=== PATIENT | female | born 1940 | race Caucasian/White ===

== ENCOUNTER 2021-01-09 09:13 | Outpatient (REF) | payer MEDICARE, OTHER, SELFPAY ==
[2021-01-09 11:10] LABS: MANUAL DIFF FLAG NO
[2021-01-09 11:18] LABS: Basophils Percent Auto 0.6 % (0-2); Eosinophils Absolute Auto 0.3 X10*3/uL (0.0-0.4); Eosinophils Percent Auto 4.2 % (0-4); Hematocrit 40.7 % (37-47); Hemoglobin 13.5 g/dl (12.0-16.0); Imm Gran Abs Auto 0.04 X10*3/uL (0.00-0.03); Imm Gran Pct Auto 0.6 % (0.0-0.4); Lymphocytes Percent Auto 45.8 % (20-40); Mean Corpuscular HGB Conc 33.2 g/dl (31.0-35.0); Mean Corpuscular Hemoglobin 30.6 pg (27.0-33.0); Mean Corpuscular Volume 92.3 fL (80-98); Mean Platelet Volume 12.2 fL (9.4-12.3); Monocytes Absolute Auto 0.4 X10*3/uL (0.1-1.2); Monocytes Percent Auto 6.3 % (2-11); Neutrophils Absolute Auto 2.8 X10*3/uL (2.0-8.3); Neutrophils Percent Auto 42.5 % (45-73); Platelet Count 273 X10*3/uL (160-400); Red Blood Count 4.41 X10*6/uL (4.20-5.50); Red Cell Distribution Width 16.3 % (11.0-16.0); White Blood Count 6.5 X10*3/uL (4.8-10.8)
[2021-01-09 11:55] LABS: Alanine Aminotransferase 16 U/L (0-31); Albumin Level 4.1 g/dL (3.5-5.0); Alkaline Phosphatase 39 U/L (39-117); Anion Gap 13 (12-20); Aspartate Amino Transferase 17 U/L (5-31); Bilirubin Total 0.6 mg/dL (0.0-1.0); Blood Urea Nitrogen 25 mg/dL (9-16); Calcium 9.2 mg/dL (8.4-10.2); Carbon Dioxide 27 mmol/L (22-29); Chloride 108 mmol/L (96-108); Cholesterol 172 mg/dL; Estimated Glomerular Filt Rate > 60; Glucose Fasting 97 mg/dL (60-99); HDL Cholesterol 51 mg/dL; LDL Cholesterol Calculated 107 mg/dl; Potassium 4.5 mmol/L (3.3-5.1); Sodium 143 mmol/L (135-145); Total Protein 6.9 g/dL (6.5-8.0); Triglycerides 73 mg/dL
[2021-01-09 12:18] LABS: Vitamin D 25-OH Total 41.3 ng/mL (>30)
== END 2021-01-09 09:14 | disposition home or self-care (01) ==
LOC: HO.HMGCLDS 09:13
PROVIDERS: PCP Internal Medicine; Visit Provider Internal Medicine
DX: E78.5 Hyperlipidemia, unspecified (principal); E55.9 Vitamin D deficiency, unspecified; I10 Essential (primary) hypertension
CPT/HCPCS: 36415; 80053; 80061; 82306; 85025

== ENCOUNTER 2023-01-01 08:41 | Outpatient (REF) | payer MEDICARE, OTHER, SELFPAY ==
[2023-01-01 11:26] LABS: MANUAL DIFF FLAG NO
[2023-01-01 11:51] LABS: Basophils Absolute Auto 0.1 X10*3/uL (0.0-0.2); Eosinophils Absolute Auto 0.3 X10*3/uL (0.0-0.4); Eosinophils Percent Auto 5.2 % (0-4); Hematocrit 38.3 % (37.0-47.0); Imm Gran Abs Auto 0.01 X10*3/uL (0.00-0.03); Imm Gran Pct Auto 0.2 % (0.0-0.4); Lymphocytes Absolute Auto 3.2 X10*3/uL (1.2-4.9); Lymphocytes Percent Auto 53.1 % (20-40); Mean Corpuscular HGB Conc 33.9 g/dl (31.0-35.0); Mean Corpuscular Hemoglobin 30.5 pg (27.0-33.0); Mean Corpuscular Volume 89.9 fL (80.0-98.0); Mean Platelet Volume 11.2 fL (9.4-12.3); Monocytes Absolute Auto 0.4 X10*3/uL (0.1-1.2); Monocytes Percent Auto 7.4 % (2-11); Neutrophils Percent Auto 33.1 % (45-73); Platelet Count 277 X10*3/uL (160-400); Red Blood Count 4.26 X10*6/uL (4.20-5.50); Red Cell Distribution Width 18.2 % (11.0-16.0); White Blood Count 5.9 X10*3/uL (4.8-10.8)
[2023-01-01 12:29] LABS: Alanine Aminotransferase 12 U/L (0-31); Albumin Level 4.1 g/dL (3.5-5.0); Alkaline Phosphatase 48 U/L (39-117); Anion Gap 10 (12-20); Aspartate Amino Transferase 15 U/L (5-31); Bilirubin Total 0.9 mg/dL (0.0-1.0); Blood Urea Nitrogen 29 mg/dL (9-16); Calcium 9.2 mg/dL (8.4-10.2); Carbon Dioxide 27 mmol/L (22-29); Chloride 109 mmol/L (96-108); Cholesterol 177 mg/dL; Estimated Glomerular Filt Rate > 60; Glucose Fasting 92 mg/dL (60-99); HDL Cholesterol 53 mg/dL; LDL Cholesterol Calculated 110 mg/dl; Potassium 3.8 mmol/L (3.3-5.1); Sodium 142 mmol/L (135-145); Total Protein 6.8 g/dL (6.5-8.0); Triglycerides 74 mg/dL; Vitamin D 25-OH Total 25.9 ng/mL (>30)
== END 2023-01-01 08:42 | disposition home or self-care (01) ==
LOC: HO.HMGCLDS 08:41
PROVIDERS: PCP Internal Medicine; Visit Provider Internal Medicine
DX: E55.9 Vitamin D deficiency, unspecified (principal); E78.5 Hyperlipidemia, unspecified; I10 Essential (primary) hypertension
CPT/HCPCS: 36415; 80053; 80061; 82306; 85025

== ENCOUNTER 2023-03-01 11:00 | Outpatient (RCR) | payer MEDICARE, OTHER, SELFPAY ==
--- NOTE | 2023-02-01 13:55 | MHC.PT.EP ---
[facility] [place] Office [place] [facility] [place] Office [address] Wyatt Mckeon [address] [phone] F: [phone] F: [phone] F: [phone] F: [phone] Physical Therapy Plan of Care Date of Evaluation: Date of Surgery: N/A Diagnosis: Low back pain, unspecified Assessment: Pt is a pleasant and motivated 82yo F who presents to PT with low back pain after carrying a 50# suit case and twisting to place it on a scale in August. Pt presents to PT with current impairments in pain, decreased lumbar ROM, soft tissue restrictions, decreased core stabilization, decreased hip/glute strength, decreased balance, and impaired gait. She is TTP throughout B thoracic and lumbar PS. She is limited functionally by prolonged sitting, prolonged standing, bending, and walking. She is an excellent candidate for skilled PT in order to address current impairments to facilitate return to PLOF. She is recommended to be seen 2x/week for 4 weeks and will be reassessed at that time. 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 Manual therapy to restore motion and function. Therapeutic exercise to improve strength and flexibility. Neuromuscular re-education for posture and balance. Therapeutic activities to return to functional activities of daily living. Electronically signed by: Ashly Flores, PT, DPT Please sign and return to therapist. Thank you for your referral.
--- NOTE | 2023-04-13 14:28 | MHC.PT.DC ---
[facility] [place] Office [place] Office [place] Office [address] Wyatt Mckeon [address] [phone] F: [phone] F: [phone] F: [phone] F: [phone] Physical Therapy Discharge Report Diagnosis: Low back pain, unspecified Date of Surgery: N/A Date of Evaluation: 02/01/23 Date of Discharge: 04/13/23 Treatments to Date: 7 Cancellations to Date: No Shows to Date: Discharge Status: Patient Elected to Stop Discharge Summary: Pt was seen for PT from 02/01/23-03/01/23. Her last attended session was 03/01/23. Pt is being D/C from skilled PT as she has not attended or called to schedule in > 30 days. Pt current level of function unknown at this time. Electronically signed by: Ashly Flores, PT, DPT Please sign and return to therapist. Thank you for your referral.
== END 2023-04-13 14:28 | disposition home or self-care (01) ==
LOC: HO.PT 11:00
PROVIDERS: PCP Internal Medicine; Visit Provider Internal Medicine
DX: M54.50 Low back pain, unspecified (principal)
CPT/HCPCS: 97110; 97140; 97161; 97530

== ENCOUNTER 2023-06-10 12:11 | Outpatient (AMB) | payer MEDICARE, OTHER, SELFPAY ==
--- NOTE | 2023-06-10 12:21 | A.OFFPC_ITS ---
Vital Signs 06/10/23 12:22 Height 5 ft Weight 128 lb 2 oz BMI 25.0 BP 140/82 H Blood Pressure Location Lt brachial Position Sitting Pulse 61 Pulse Source Pulse Oximeter Pulse Oximetry (%) 95 Oxygen Delivery Method Room Air Intake Visit Reasons: 1 Month follow up HTN Allergies Aciphex Allergy (Intermediate, Uncoded 06/10/23 12:23) Swelling Medication List - Last Reconciled 06/10/23 by Katey Oliva MD aspirin 81 mg PO DAILY atenolol 25 mg PO BID cholecalciferol (vitamin D3) 50 mcg PO DAILY lisinopril 15 mg (1.5 x 10 mg) PO DAILY Tobacco use date assessed: 06/10/23 Fall risk assessment: No Falls in past year Last assessed Fall Risk: 06/10/23 Dental Screening Dental Screen Date: 06/10/23 Did you have a dental visit in the last 12 months?: No Did you have a dental problem in the last 6 months where you did not have access to dental care?: No Was dental information given to patient?: Patient has dentist HPI 1 Month follow up HTN HPI Details Pt pesents for f/u HTN. Patient is feeling better denies headaches or chest pain. PFSH Medical History Hyperlipidemia Hypertension Vitamin D deficiency Surgical History H/O breast surgery H/O colonoscopy H/O: knee surgery Family History Father Liver disease Mother No problems noted. Brother Brain cancer Social History Household Members Other:: lives alone, , [place]ian, 1 daughter in [place], 1 granddaughter 16 yo Housing: House Alcohol intake: never Patient Tobacco Use Status: Never used Tobacco e-Cigarette/Vaping Use: Never Used Current occupational status: retired Cognitive needs: No Hearing needs: No Vision needs: Yes Review of Systems Const All systems reviewed & are unremarkable except as noted in HPI and below Reports no additional complaints Eyes Reports no additional complaints ENT Reports no additional complaints Card Reports no additional complaints Resp Reports no additional complaints GI Reports no additional complaints Physical exam (Primary Care) Vital Signs: Last Vital Signs Pulse 61 06/10/23 12:22 BP 150/82 H 06/10/23 12:22 Pulse Ox 95 06/10/23 12:22 Oxygen Delivery Method Room Air 06/10/23 12:22 BMI result Body Mass Index 25.0 Tobacco/Smoking Status: Tobacco use Status Tobacco use date assessed 06/10/23 06/10/23 12:26 Patient Tobacco Use Status Never used Tobacco 06/10/23 12:26 e-Cigarette/Vaping Use Never Used 06/10/23 12:26 Const General: no acute distress HENMT Head: Yes normal to inspection Ears: hearing grossly normal bilaterally Face and sinus: Yes normal facial exam Mouth: Normal oral and palatal mucosa present Eyes General: appearance normal, both eyes and all related structures Neck Neck: Yes no lymphadenopathy and Yes supple Resp Effort & Inspection: normal respiratory effort Auscultation: clear to auscultation bilaterally Cardio Rhythm: regular rhythm Heart sounds: S1 normal heart sound present and S2 normal heart sound present Assessment and Plan Assessment & Plan (1) Hyperlipidemia: Code(s): E78.5 - Hyperlipidemia, unspecified Plan: CONTINUE LOW-CHOLESTEROL DIET (2) Hypertension: Code(s): I10 - Essential (primary) hypertension Plan: Continue atenolol 50 mg once a day and increase lisinopril to 10 mg twice a day. Follow-up in 2 months with a fasting labs before Orders: Orders Comprehensive [place]. Panel Fast 2 Months E78.5 - Hyperlipidemia, unspecified, I10 - Essential (primary) hypertension TSH reflex Free T4 2 Months E78.5 - Hyperlipidemia, unspecified, I10 - Essential (primary) hypertension Complete Blood Count Auto Diff 2 Months E78.5 - Hyperlipidemia, unspecified, I10 - Essential (primary) hypertension Referrals Dermatology Referral B07.9 - Viral wart, unspecified Medications: New atenolol 50 mg PO DAILY 90 tabs 3RF Changed From lisinopril 15 mg (1.5 x 10 mg) PO DAILY 135 tabs 0RF To lisinopril 10 mg PO BID 190 tabs 2RF Coding Level of Care Code Est Pt Level 3 (33639) Diagnoses Hyperlipidemia E78.5 Hypertension I10
[2023-06-10 12:22] VITALS: BP 140/82; PULSE 61; O2SAT 95; BMI 25.0
== END 2023-06-10 13:16 | disposition home or self-care (01) ==
PROVIDERS: PCP Internal Medicine; Visit Provider Internal Medicine
DX: E78.5 Hyperlipidemia, unspecified (principal); I10 Essential (primary) hypertension
CPT/HCPCS: 99213

== ENCOUNTER 2023-08-04 10:47 | Outpatient (AMB) | payer MEDICARE, OTHER, SELFPAY ==
--- NOTE | 2023-08-04 11:03 | MHC.PC.OV ---
Vital Signs 08/04/23 11:04 Height 5 ft Weight 127 lb BMI 24.8 BP 130/82 Blood Pressure Location Lt brachial Position Sitting Pulse 64 Pulse Source Pulse Oximeter Pulse Oximetry (%) 96 Oxygen Delivery Method Room Air Intake Visit Reasons: 2 month fu Intake Note: Pt is here today for 2 months follow up visit on BP. Pt states that she feels like half of her face is numb. Allergies Aciphex Allergy (Intermediate, Uncoded 08/04/23 11:07) Swelling Medication List - Last Reconciled 08/04/23 by Katey Oliva MD aspirin 81 mg PO DAILY atenolol 50 mg PO DAILY cholecalciferol (vitamin D3) 50 mcg PO DAILY lisinopril 10 mg PO BID Tobacco use date assessed: 06/10/23 HPI 2 month fu HPI Details Patient presents for the follow-up on hypertension. She reports intermittent left-sided facial numbness on and off for few weeks worse when anxious. Patient denies any change in the balance, weakness or numbness in extremities, face droop, chest pain or shortness of breath. [facility] Medical History Hyperlipidemia Hypertension Vitamin D deficiency Surgical History H/O breast surgery H/O colonoscopy H/O: knee surgery Family History Father Liver disease Mother No problems noted. Brother Brain cancer Social History Household Members Other:: lives alone, , [place], 1 daughter in [place], 1 granddaughter 16 yo Housing: House Alcohol intake: never Patient Tobacco Use Status: Never used Tobacco e-Cigarette/Vaping Use: Never Used Current occupational status: retired Cognitive needs: No Hearing needs: No Vision needs: Yes Review of Systems Const All systems reviewed & are unremarkable except as noted in HPI and below Reports no additional complaints Eyes Reports no additional complaints ENT Reports no additional complaints Card Reports no additional complaints Resp Reports no additional complaints GI Reports no additional complaints Reports no additional complaints Physical exam (Primary Care) Vital Signs: Last Vital Signs Pulse 64 08/04/23 11:04 BP 156/82 H 08/04/23 11:04 Pulse Ox 96 08/04/23 11:04 Oxygen Delivery Method Room Air 08/04/23 11:04 BMI result Body Mass Index 24.8 Tobacco/Smoking Status: Tobacco use Status Tobacco use date assessed 06/10/23 08/04/23 11:05 Patient Tobacco Use Status Never used Tobacco 08/04/23 11:05 e-Cigarette/Vaping Use Never Used 08/04/23 11:05 Const General: no acute distress HENMT Head: Yes normal to inspection Ears: hearing grossly normal bilaterally Face and sinus: Yes normal facial exam, Yes face symmetric and No sinus tenderness Eyes General: appearance normal, both eyes and all related structures Neck Neck: Yes no lymphadenopathy and Yes supple Carotids: bruit bilateral Resp Effort & Inspection: normal respiratory effort Auscultation: clear to auscultation bilaterally Cardio Rhythm: regular rhythm Heart sounds: S1 normal heart sound present and S2 normal heart sound present GI Inspection: Yes normal to inspection Palpation (GI): Soft to palpation Percussion: Yes normal to percussion Auscultation: normal bowel sounds Neuro General: no focal motor deficits, CN's II-XI intact bilaterally, normal sensation to monofilament and deep tendon reflexes 2+ bilaterally Gait exam (Neuro): Normal gait present Motor exam (neuro): 5/5 motor strength present throughout Romberg Test: Negative Assessment and Plan Assessment & Plan (1) Hypertension: Code(s): I10 - Essential (primary) hypertension Plan: Continue current medication low-sodium diet regular physical activity discussed with the patient. Follow-up in 2 months (2) Vitamin D deficiency: Code(s): E55.9 - Vitamin D deficiency, unspecified (3) Carotid bruit: Code(s): R09.89 - Other specified symptoms and signs involving the circulatory and respiratory systems Plan: Obtain carotid ultrasound (4) Heart murmur: Code(s): R01.1 - Cardiac murmur, unspecified Plan: Obtain echocardiogram to evaluate Orders: Orders TSH reflex Free T4 Today E55.9 - Vitamin D deficiency, unspecified, I10 - Essential (primary) hypertension Vitamin D 25-OH Total Today E55.9 - Vitamin D deficiency, unspecified, I10 - Essential (primary) hypertension Complete Blood Count Auto Diff Today E55.9 - Vitamin D deficiency, unspecified, I10 - Essential (primary) hypertension Comprehensive Met. Panel Today E55.9 - Vitamin D deficiency, unspecified, I10 - Essential (primary) hypertension US carotid duplex BI Today R01.1 - Cardiac murmur, unspecified, R09.89 - Other specified symptoms and signs involving the circulatory and respiratory systems [place] echo transthoracic complete Today R01.1 - Cardiac murmur, unspecified, R09.89 - Other specified symptoms and signs involving the circulatory and respiratory systems Coding Level of Care Code Est Pt Level 4 (23825) Diagnoses Hypertension I10 Vitamin D deficiency E55.9 Carotid bruit R09.89 Heart murmur R01.1
[2023-08-04 11:04] VITALS: BP 130/82; PULSE 64; O2SAT 96; BMI 24.8
== END 2023-08-04 11:58 | disposition home or self-care (01) ==
PROVIDERS: PCP Internal Medicine; Visit Provider Internal Medicine
DX: I10 Essential (primary) hypertension (principal); E55.9 Vitamin D deficiency, unspecified; R09.89 Other specified symptoms and signs involving the circulatory and respiratory systems; R01.1 Cardiac murmur, unspecified
CPT/HCPCS: 99214

== ENCOUNTER 2023-08-04 11:57 | Outpatient (REF) | payer MEDICARE, OTHER, SELFPAY ==
[2023-08-04 13:05] LABS: MANUAL DIFF FLAG NO
[2023-08-04 13:16] LABS: Basophils Absolute Auto 0.1 X10*3/uL (0.0-0.2); Basophils Percent Auto 0.9 % (0-2); Eosinophils Absolute Auto 0.3 X10*3/uL (0.0-0.4); Hematocrit 39.4 % (37.0-47.0); Hemoglobin 13.3 g/dl (12.0-16.0); Imm Gran Abs Auto 0.01 X10*3/uL (0.00-0.03); Imm Gran Pct Auto 0.2 % (0.0-0.4); Lymphocytes Absolute Auto 2.5 X10*3/uL (1.2-4.9); Lymphocytes Percent Auto 37.9 % (20-40); Mean Corpuscular HGB Conc 33.8 g/dl (31.0-35.0); Mean Corpuscular Hemoglobin 31.2 pg (27.0-33.0); Mean Corpuscular Volume 92.5 fL (80.0-98.0); Mean Platelet Volume 11.3 fL (9.4-12.3); Monocytes Absolute Auto 0.5 X10*3/uL (0.1-1.2); Monocytes Percent Auto 7.7 % (2-11); Neutrophils Absolute Auto 3.2 x10*3/uL (2.0-8.3); Neutrophils Percent Auto 49.3 % (45-73); Platelet Count 277 X10*3/uL (160-400); Red Blood Count 4.26 X10*6/uL (4.20-5.50); White Blood Count 6.5 X10*3/uL (4.8-10.8)
[2023-08-04 14:09] LABS: Alanine Aminotransferase 11 U/L (0-31); Albumin Level 4.2 g/dL (3.5-5.0); Alkaline Phosphatase 50 U/L (39-117); Anion Gap 11 (12-20); Aspartate Amino Transferase 15 U/L (5-31); Bilirubin Total 0.6 mg/dL (0.0-1.0); Blood Urea Nitrogen 15 mg/dL (9-16); Calcium 9.4 mg/dL (8.4-10.2); Carbon Dioxide 27 mmol/L (22-29); Chloride 109 mmol/L (96-108); Estimated Glomerular Filt Rate > 60; Glucose Random 96 mg/dL (60-115); Potassium 4.1 mmol/L (3.3-5.1); Sodium 143 mmol/L (135-145); Total Protein 7.3 g/dL (6.5-8.0)
[2023-08-04 14:15] LABS: TSH reflex Free T4 0.73 uIU/mL (0.32-4.0); Vitamin D 25-OH Total 29.1 ng/mL (>30)
== END 2023-08-04 11:58 | disposition home or self-care (01) ==
LOC: HO.HMGCLDS 11:57
PROVIDERS: PCP Internal Medicine; Visit Provider Internal Medicine
DX: I10 Essential (primary) hypertension (principal); E55.9 Vitamin D deficiency, unspecified
CPT/HCPCS: 36415; 80053; 82306; 84443; 85025

== ENCOUNTER → 2023-08-09 12:43 | Outpatient (REF) | payer MEDICARE, OTHER, SELFPAY ==
--- NOTE | 2023-08-09 12:46 | CA_ITS ---
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 Study Quality: Fair ECG Rhythm: Sinus Conclusions: - The left ventricular systolic function is normal. The visually estimated ejection fraction is between 60-65%. - There is mild to moderate tricuspid valve regurgitation. Findings Left Ventricle Normal left ventricular cavity size. There is mildly increased left ventricular wall thickness. The left ventricular systolic function is normal. The visually estimated ejection fraction is between 60-65%. There is no evidence of regional wall motion abnormalities. Evidence suggests grade I (mild) diastolic dysfunction. Right Ventricle Normal right ventricular cavity size and systolic function. Atria Both atria are normal in size. Aortic Valve There is a normal trileaflet aortic valve. There is no aortic valve stenosis. There is no aortic valve regurgitation. Mitral Valve The mitral valve appears normal. There is trace mitral valve regurgitation. There is no mitral valve stenosis. Pulmonic Valve The pulmonic valve is likely normal. Tricuspid Valve Normal tricuspid valve structure. There is mild to moderate tricuspid valve regurgitation. Borderline RVSP. Great Vessels The aortic annulus, sinuses of valsalva, and asc aorta are normal in size. Venous The inferior vena cava is normal in size and collapses greater than 50% with inspiration. Pericardium/Pleural There is a trivial pericardial effusion. Prior Study Comparison No significant change compared to prior study dated: 10/12/2016. Measurements 2D Linear Measurements IVSd: 1.09 0.6-0.9/0.6-1.0 cm LVIDd: 4.37 3.9-5.3/4.2-5.9 cm LVIDd Index: 2.86 2.4-3.2/2.2-3.1 cm/m2 LVIDs: 2.72 2.0-3.6 cm LVPWd: 1.08 0.7-1.1 cm Ao Root: 3.10 2.1-3.5 cm LA Diam: 3.90 2.7-3.8/3.0-4.0 cm LAIDs Index: 2.55 1.5-2.3 cm/m2 LV Mass: 204.12 67-162/88-224 g LV Mass Index: 133.41 43-95/49-115 g/m2 LVOT Diam: 2.00 3.0+(-)1.3 cm 2D Systolic Function EF 4C: 55.60 >55% EF 2C: 67.10 >55% EF BiP: 61.30 >55% Mitral Valve MV Pk E: 0.51 MV PK A: 1.11 MV Decel Time: 180.00 E/A: 0.50 E'Lateral: 2.18 E'Medial: 3.05 E/E' Med: 16.60 E/E' Lat: 23.20 PHT: 53.00 MVA PHT: 4.15 Decel Daviess: 2.82 Aortic Valve AoV Pk Balbir: 1.54 AoV Mn Balbir: 1.02 AoV VTI: 0.39 AoV Pk Grad: 9.00 Aov Mn Grad: 5.00 LORENZO Cont.VTI: 2.46 LVOT LVOT Pk Balbir: 1.23 LVOT Mn Balbir: 0.84 LVOT VTI: 0.30 LVOT Pk Grad: 6.00 LVOT Mn Grad: 3.00 LVOT Diam: 2.00 LVOT Area: 3.14 Diastolic Function MV Pk E: 0.51 MV Pk A: 1.11 E/A: 0.50 E'Medial: 3.05 E/E' Med: 16.60 E' Laterial: 2.18 E/E' Lat: 23.20 Right Ventricle TAPSE (mm): 31.00 TVS' Balbir: 9.00 Tricuspid Valve TR Pk Balbir: 2.96 TR Pk Grad: 35.00 RA Press: 3.00 RVSP: 38.00 Great Vessels Aorta Ao Root-2D: 3.10 2.0-3.7 cm Ao Asc: 3.20 2.1-3.4 cm Pulmonary Valve PV Pk Balbir: 0.99 Peak PV Grad: 4.00 Updated in Other Vendor System with Status of Final Nikita Anderson MD electronically signed on 08/09/2023 3:54:00 PM with status of Final
== END ==
LOC: HO.CARD 12:43
PROVIDERS: PCP Internal Medicine; Visit Provider Internal Medicine
DX: R09.89 Other specified symptoms and signs involving the circulatory and respiratory systems (principal); R01.1 Cardiac murmur, unspecified
CPT/HCPCS: 93306; 93880

== ENCOUNTER → 2023-08-09 12:46 | Outpatient (BNV) | payer MEDICARE, OTHER, SELFPAY | PROVIDERS: PCP Internal Medicine; Visit Provider Internal Medicine | DX: I36.1 Nonrheumatic tricuspid (valve) insufficiency (principal) | CPT/HCPCS: 93306 ==

== ENCOUNTER 2023-08-09 15:13 | Outpatient (REF) | payer MEDICARE, OTHER, SELFPAY ==
--- NOTE | ~2023-08-09 | US_ITS ---
EXAMINATION: US EXTRACRANIAL CAROTID DUPLEX, BILATERAL CLINICAL INFORMATION: bruit COMPARISON: None available. TECHNIQUE: Real-time ultrasound and Doppler techniques (integrating B-mode 2-D vascular images, Doppler spectral analysis and color-flow Doppler imaging) were utilized to interrogate the extracranial carotid arteries, the vertebral arteries and proximal subclavian arteries bilaterally. The degree of stenosis is determined by criteria similar to NASCET. FINDINGS: Right Side: 1. There is mild atherosclerotic plaque seen in the bifurcation/proximal ICA region. 2. The common carotid artery PSV proximally is 93.3 cm/s and distally 50.3 cm/s. 3. The proximal internal carotid artery velocities are 48.3 cm/s systolic and 12.2 cm/s diastolic. 4. The proximal external carotid artery PSV is 59.2 cm/s. 5. The vertebral artery shows antegrade flow. 6. The subclavian artery waveforms are normal. Left Side: 1. There is mild atherosclerotic plaque seen in the bifurcation/proximal ICA region. 2. The common carotid artery PSV proximally is 90.6 cm/s and distally 60.5 cm/s. 3. The proximal internal carotid artery velocities are 54.2 cm/s systolic and 13.4 cm/s diastolic. 4. The proximal external carotid artery PSV is 55.1 cm/s. 5. The vertebral artery shows antegrade flow. 6. The subclavian artery waveforms are normal. US/US carotid duplex BI IMPRESSION: 1. RIGHT: Minimal, non-hemodynamically significant stenosis of the proximal right internal carotid artery corresponding to a 0-49% stenosis by velocity criteria. 2. LEFT: Minimal, non-hemodynamically significant stenosis of the proximal left internal carotid artery corresponding to a 0-49% stenosis by velocity criteria.
== END 2023-08-09 15:14 | disposition home or self-care (01) ==
LOC: HO.HMGCX 15:13
PROVIDERS: PCP Internal Medicine; Visit Provider Internal Medicine
DX: Z13.89 Encounter for screening for other disorder (principal)
CPT/HCPCS: 93880

== ENCOUNTER 2024-09-13 10:01 | Outpatient (AMB) | payer MEDICARE, OTHER, SELFPAY ==
[2024-09-13 10:12] VITALS: BP 140/80; PULSE 64; O2SAT 96; BMI 24.6
--- NOTE | 2024-09-13 10:12 | A.OFFPC_ITS ---
Vital Signs 09/13/24 10:12 Height 5 ft Weight 126 lb BMI 24.6 BP 140/80 H Blood Pressure Location Lt brachial Position Sitting Pulse 64 Pulse Source Pulse Oximeter Pulse Oximetry (%) 96 Oxygen Delivery Method Room Air Intake Visit Reasons: Follow up med refill Intake Note: Pt is here today for a follow up visit on HTN. Allergies Aciphex Allergy (Intermediate, Uncoded 09/13/24 10:14) Swelling Medication List - Last Reconciled 09/13/24 by Katey Oliva MD aspirin 81 mg PO DAILY atenolol 50 mg PO DAILY cholecalciferol (vitamin D3) 50 mcg PO DAILY lisinopril 10 mg PO BID Tobacco use date assessed: 09/13/24 Fall risk assessment: No Falls in past year Last assessed Fall Risk: 09/13/24 Dental Screening Dental Screen Date: 09/13/24 Did you have a dental visit in the last 12 months?: Yes Did you have a dental problem in the last 6 months where you did not have access to dental care?: No Was dental information given to patient?: Patient has dentist HPI Follow up med refill HPI Details PATIENT PRESENTS FOR THE FOLLOW-UP ON HYPERTENSION. She spent 4 months in [facility] in the summer. [facility] Medical History Vitamin D deficiency Hyperlipidemia Hypertension Surgical History H/O breast surgery H/O: knee surgery H/O colonoscopy Family History Father Liver disease Mother No problems noted. Brother Brain cancer Social History Household Members Other:: lives alone, , Citizen [place], 1 daughter in [place], 1 granddaughter 16 yo Housing: House Alcohol intake: never Patient Tobacco Use Status: Never used Tobacco e-Cigarette/Vaping Use: Never Used service: No Current occupational status: retired Cognitive needs: No Hearing needs: No Vision needs: Yes Questionnaire PHQ-9 Over the last 2 weeks, how often have you been bothered by any of the following problems? 1. Little interest or pleasure in doing things: not at all 2. Feeling down, depressed, or hopeless: not at all 3. Trouble falling or staying asleep, or sleeping too much: not at all 4. Feeling tired or having little energy: not at all 5. Poor appetite or overeating: not at all 6. Feeling bad about yourself - or that you are a failure or have let yourself or your family down: not at all 7. Trouble concentrating on things, such as reading the newspaper or watching television: not at all 8. Moving or speaking so slowly that other people could have noticed. Or the opposite - being so fidgety or restless that you have been moving around a lot more than usual: not at all 9. Thoughts that you would be better off or of hurting yourself in some way: not at all Total score: 0 Depression Screening Interpretation: Negative Depression Screening Done: Yes 51109 - PHQ-9 Billing: Yes Source: Developed by Drs. Dameon Schmidt, Mikayla Conde, Danilo Alex and colleagues, with an educational leslee from [employer]. Thrive Questionnaire Date Thrive assessed: 09/13/24 I am a: Patient What is your living situation today?: I have a steady place to live Within the past 12 months, did the food you bought not last and you didn't have the money to get more?: Never true Within the past 12 months, did you worry whether your food would run out before you got money to buy more?: Never true Do you have trouble paying for medicines?: No Do you have trouble getting transportation to medical appointments?: No Do you have trouble paying your heating and electricity bill?: No Do you have trouble taking care of your child, family member or friend?: No Do you have trouble with day-to-day activities such as bathing, preparing meals, shopping, managing finances, etc.?: No Are you currently unemployed and looking for a job?: No Are you interested in more education?: No Please select the resources that you would like help with: None Currently or been in a relationship where the following occur: No concerns reported THRIVE Score: 0 AUDIT C Alcohol Use Questionnaire (AUDIT-C) 1. How often do you have a drink containing alcohol?: Never 3. How often do you have six or more drinks on one occasion?: Never Total Score: 0 FUDA-7 AMB Questionnaire FUAD-7 Date FUAD - 7 assessed: 09/13/24 Feeling nervous, anxious, or on edge: 0 = Not at all Not being able to stop or control worryin = Not at all Worrying too much about different things: 0 = Not at all Trouble relaxin = Not at all Being so restless that it is hard to sit still: 0 = Not at all Becoming easily annoyed or irritable: 0 = Not at all Feeling afraid as if something awful might happen: 0 = Not at all Total FUAD-7 score (0-4 normal; 5-9 mild; 10-14 moderate; 15-21 severe): 0 Source: Developed by Drs. Dameon Schmidt, Mikayla Conde, Danilo Alex and colleagues, with an educational leslee from [employer]. FUAD-7 Assessment Billing FUAD-7 Assessment Tool: FUAD-7 Assessment 10130 Review of Systems Const All systems reviewed & are unremarkable except as noted in HPI and below ENT Reports no additional complaints Card Reports no additional complaints Resp Reports no additional complaints GI Reports no additional complaints Physical exam (Primary Care) Vital Signs: Last Vital Signs Pulse 64 09/13/24 10:12 BP 140/80 H 09/13/24 10:12 Pulse Ox 96 09/13/24 10:12 Oxygen Delivery Method Room Air 09/13/24 10:12 BMI result Body Mass Index 24.6 Tobacco/Smoking Status: Tobacco use Status Tobacco use date assessed 09/13/24 09/13/24 10:16 Patient Tobacco Use Status Never used Tobacco 09/13/24 10:16 e-Cigarette/Vaping Use Never Used 09/13/24 10:16 PHQ-9: PHQ-9 Score PHQ-9: Total score 0 09/13/24 10:16 Depression Screening Interpretation: Negative Thrive Assessment: Date of Thrive Assessment Date Thrive assessed 09/13/24 09/13/24 10:16 Currently or been in a relationship where the following occur: No concerns reported Const General: no acute distress Resp Effort & Inspection: normal respiratory effort Auscultation: clear to auscultation bilaterally Cardio Rhythm: regular rhythm Heart sounds: S1 normal heart sound present and S2 normal heart sound present GI Inspection: Yes normal to inspection Coding Level of Care Code Est Pt Level 3 (75446) Diagnoses Annual physical exam Z00.00 Hyperlipidemia E78.5 Hypertension I10 Additional Codes FUAD-7 Assessment Billing - FUAD-7 Assessment Tool: FUAD-7 Assessment 32248 ([id number]) PHQ-9 - 86579 - PHQ-9 Billing: Yes ([id number]) Assessment & Plan Assessment & Plan (1) Annual physical exam: Code(s): Z00.00 - Encounter for general adult medical examination without abnormal findings Category: Medical Plan: Well-balanced diet regular physical activity discussed with the patient (2) Hyperlipidemia: Code(s): E78.5 - Hyperlipidemia, unspecified Category: Medical Plan: Continue low-cholesterol diet check lipid profile (3) Hypertension: Code(s): I10 - Essential (primary) hypertension Category: Medical Plan: Increase lisinopril to 30 mg and continue atenolol, follow-up in 3 months Orders: Orders Comprehensive [place]. Panel Fast Today E78.5 - Hyperlipidemia, unspecified, I10 - Essential (primary) hypertension, Z00.00 - Encounter for general adult medical examination without abnormal findings Complete Blood Count Auto Diff Today E78.5 - Hyperlipidemia, unspecified, I10 - Essential (primary) hypertension, Z00.00 - Encounter for general adult medical examination without abnormal findings Lipid Panel Today E78.5 - Hyperlipidemia, unspecified TSH reflex Free T4 Today E78.5 - Hyperlipidemia, unspecified, I10 - Essential (primary) hypertension, Z00.00 - Encounter for general adult medical examination without abnormal findings Medications: New lisinopril 30 mg PO DAILY 90 tabs 3RF Refilled atenolol 50 mg PO DAILY 90 tabs 3RF
== END 2024-09-13 10:59 | disposition home or self-care (01) ==
LOC: HO.HMCC 10:01
PROVIDERS: PCP Internal Medicine; Visit Provider Internal Medicine
DX: Z00.00 Encounter for general adult medical examination without abnormal findings (principal); E78.5 Hyperlipidemia, unspecified; I10 Essential (primary) hypertension

== ENCOUNTER → 2024-09-13 10:01 | Outpatient (BNVA) | payer MEDICARE, OTHER, SELFPAY | PROVIDERS: PCP Internal Medicine; Visit Provider Internal Medicine | DX: Z00.00 Encounter for general adult medical examination without abnormal findings (principal); E78.5 Hyperlipidemia, unspecified; I10 Essential (primary) hypertension | CPT/HCPCS: 96127; 99212 ==

== ENCOUNTER 2024-09-19 09:29 | Outpatient (REF) | payer MEDICARE, OTHER, SELFPAY ==
[2024-09-19 10:09] LABS: MANUAL DIFF FLAG NO
[2024-09-19 10:31] LABS: Basophils Absolute Auto 0.1 X10*3/uL (0.0-0.2); Basophils Percent Auto 0.8 % (0-2); Eosinophils Absolute Auto 0.2 X10*3/uL (0.0-0.4); Eosinophils Percent Auto 3.7 % (0-4); Hematocrit 39.6 % (37.0-47.0); Hemoglobin 13.6 g/dl (12.0-16.0); Imm Gran Abs Auto 0.01 X10*3/uL (0.00-0.03); Imm Gran Pct Auto 0.2 % (0.0-0.4); Lymphocytes Absolute Auto 2.7 X10*3/uL (1.2-4.9); Lymphocytes Percent Auto 43.3 % (20-40); Mean Corpuscular HGB Conc 34.3 g/dl (31.0-35.0); Mean Corpuscular Hemoglobin 32.1 pg (27.0-33.0); Mean Corpuscular Volume 93.4 fL (80.0-98.0); Mean Platelet Volume 11.3 fL (9.4-12.3); Monocytes Absolute Auto 0.5 X10*3/uL (0.1-1.2); Monocytes Percent Auto 8.3 % (2-11); Neutrophils Absolute Auto 2.8 x10*3/uL (2.0-8.3); Neutrophils Percent Auto 43.7 % (45-73); Platelet Count 276 X10*3/uL (160-400); Red Blood Count 4.24 X10*6/uL (4.20-5.50); Red Cell Distribution Width 20.5 % (11.0-16.0); White Blood Count 6.3 X10*3/uL (4.8-10.8)
[2024-09-19 11:20] LABS: Alanine Aminotransferase 18 U/L (0-31); Albumin Level 4.3 g/dL (3.5-5.0); Alkaline Phosphatase 62 U/L (39-117); Anion Gap 12 (12-20); Aspartate Amino Transferase 22 U/L (5-31); Blood Urea Nitrogen 19 mg/dL (9-16); Calcium 9.6 mg/dL (8.4-10.2); Carbon Dioxide 26 mmol/L (22-29); Chloride 109 mmol/L (96-108); Cholesterol 163 mg/dL (<200); Estimated Glomerular Filt Rate > 60; Glucose Fasting 89 mg/dL (60-99); HDL Cholesterol 56 mg/dL (>40); LDL Cholesterol Calculated 94 mg/dL (<100); Potassium 4.1 mmol/L (3.3-5.1); Sodium 143 mmol/L (135-145); Total Protein 7.3 g/dL (6.5-8.0); Triglycerides 69 mg/dL (<150)
[2024-09-19 11:41] LABS: TSH reflex Free T4 0.76 uIU/mL (0.32-4.0)
== END 2024-09-19 09:30 | disposition home or self-care (01) ==
LOC: HO.HMGCLDS 09:29
PROVIDERS: PCP Internal Medicine; Visit Provider Internal Medicine
DX: Z00.00 Encounter for general adult medical examination without abnormal findings (principal); E78.5 Hyperlipidemia, unspecified; I10 Essential (primary) hypertension
CPT/HCPCS: 36415; 80053; 80061; 84443; 85025

== ENCOUNTER 2024-10-13 10:43 | Outpatient (RCR) | payer MEDICARE, OTHER, SELFPAY | END 2025-03-06 11:04 | disposition home or self-care (01) | LOC: HO.OT 10:43 | PROVIDERS: PCP Internal Medicine; Visit Provider Physician Assistant Surgical | DX: M20.011 Mallet finger of right finger(s) (principal) | CPT/HCPCS: 97166; 97535; 97760 ==

== ENCOUNTER 2025-09-06 11:09 | Outpatient (AMB) | payer MEDICARE, OTHER, SELFPAY ==
[2025-09-06 11:45] VITALS: BP 140/80; PULSE 64; RESP 16; TEMP 36.7; O2SAT 97; BMI 24.8
--- NOTE | 2025-09-06 11:45 | A.OFFPC_ITS ---
Vital Signs 09/06/25 11:45 Height 5 ft Weight 127 lb BMI 24.8 BP 140/80 H Blood Pressure Location Lt brachial Position Sitting Respiration 16 Pulse 64 Pulse Source Pulse Oximeter Temp 98.0 F Temp Source Oral Pulse Oximetry (%) 97 Oxygen Delivery Method Room Air Intake Visit Reasons: cold symptoms Intake Note: Pt is here today c/o coughing since came back from [facility] Allergies Aciphex Allergy (Intermediate, Uncoded 09/06/25 11:45) Swelling Medication List - Last Reconciled 09/06/25 by Katey Oliva MD albuterol sulfate 90 mcg/actuation (Ventolin HFA) 2 puffs inhalation Q6H PRN aspirin 81 mg PO DAILY atenolol 50 mg PO DAILY azithromycin For 250 mg dose pack: take 500 mg today (day 1), then 250 mg for 4 days (days 2-5) PO cholecalciferol (vitamin D3) 50 mcg PO DAILY lisinopril 30 mg PO DAILY Tobacco use date assessed: 09/06/25 Fall risk assessment: No Falls in past year Last assessed Fall Risk: 09/06/25 Dental Screening Dental Screen Date: 09/06/25 Did you have a dental visit in the last 12 months?: Yes Did you have a dental problem in the last 6 months where you did not have access to dental care?: No Was dental information given to patient?: Patient has dentist HPI cold symptoms HPI Details Pt c/o 2 weeks of cough, productive with yellow sputum, chills, intermittent wheezing. Patient denies chest pain or fever, nasal congestion. [facility] Medical History Vitamin D deficiency Hyperlipidemia Hypertension Surgical History H/O breast surgery H/O: knee surgery H/O colonoscopy Family History Father Liver disease Mother No problems noted. Brother Brain cancer Social History Household Members Other:: lives alone, , [place], 1 daughter in [place], 1 granddaughter 16 yo Housing: House Alcohol intake: never Patient Tobacco Use Status: Never used Tobacco e-Cigarette/Vaping Use: Never Used service: No Current occupational status: retired Cognitive needs: No Hearing needs: No Vision needs: Yes Questionnaire PHQ-9 Over the last 2 weeks, how often have you been bothered by any of the following problems? 1. Little interest or pleasure in doing things: not at all 2. Feeling down, depressed, or hopeless: not at all 3. Trouble falling or staying asleep, or sleeping too much: not at all 4. Feeling tired or having little energy: not at all 5. Poor appetite or overeating: not at all 6. Feeling bad about yourself - or that you are a failure or have let yourself or your family down: not at all 7. Trouble concentrating on things, such as reading the newspaper or watching television: not at all 8. Moving or speaking so slowly that other people could have noticed. Or the opposite - being so fidgety or restless that you have been moving around a lot more than usual: not at all 9. Thoughts that you would be better off or of hurting yourself in some way: not at all Total score: 0 Depression Screening Interpretation: Negative Depression Screening Done: Yes 84430 - PHQ-9 Billing: Yes Source: Developed by Drs. Dameon Schmidt, Mikayla Conde, Danilo Alex and colleagues, with an educational leslee from [employer]. Thrive Questionnaire Date Thrive assessed: 09/06/25 I am a: Patient What is your living situation today?: I have a steady place to live Within the past 12 months, did the food you bought not last and you didn't have the money to get more?: Never true Within the past 12 months, did you worry whether your food would run out before you got money to buy more?: Never true Do you have trouble paying for medicines?: No Do you have trouble getting transportation to medical appointments?: No Do you have trouble paying your heating and electricity bill?: No Do you have trouble taking care of your child, family member or friend?: No Do you have trouble with day-to-day activities such as bathing, preparing meals, shopping, managing finances, etc.?: No Are you currently unemployed and looking for a job?: No Are you interested in more education?: No Please select the resources that you would like help with: None Currently or been in a relationship where the following occur: No concerns reported THRIVE Score: 0 AUDIT C Alcohol Use Questionnaire (AUDIT-C) 1. How often do you have a drink containing alcohol?: Never 3. How often do you have six or more drinks on one occasion?: Never Total Score: 0 Score Reviewed/Action Taken: Yes FUAD-7 AMB Questionnaire FUAD-7 Date FUAD - 7 assessed: 09/06/25 Feeling nervous, anxious, or on edge: 0 = Not at all Not being able to stop or control worryin = Not at all Worrying too much about different things: 0 = Not at all Trouble relaxin = Not at all Being so restless that it is hard to sit still: 0 = Not at all Becoming easily annoyed or irritable: 0 = Not at all Feeling afraid as if something awful might happen: 0 = Not at all Total FUAD-7 score (0-4 normal; 5-9 mild; 10-14 moderate; 15-21 severe): 0 Source: Developed by Drs. Dameon Schmidt, Mikayla Conde, Danilo Alex and colleagues, with an educational leslee from [employer]. FUAD-7 Assessment Billing FUAD-7 Assessment Tool: FUAD-7 Assessment 81791 Review of Systems Const All systems reviewed & are unremarkable except as noted in HPI and below ENT Reports no additional complaints Card Reports no additional complaints Resp Reports no additional complaints GI Reports no additional complaints Reports no additional complaints Physical exam (Primary Care) Vital Signs: Last Vital Signs Temp 98.0 F 09/06/25 11:45 Pulse 64 09/06/25 11:45 Resp 16 09/06/25 11:45 BP 180/80 H 09/06/25 11:45 Pulse Ox 97 09/06/25 11:45 Oxygen Delivery Method Room Air 09/06/25 11:45 BMI result Body Mass Index 24.8 Tobacco/Smoking Status: Tobacco use Status Tobacco use date assessed 09/06/25 09/06/25 11:48 Patient Tobacco Use Status Never used Tobacco 09/06/25 11:48 e-Cigarette/Vaping Use Never Used 09/06/25 11:48 PHQ-9: PHQ-9 Score PHQ-9: Total score 0 09/06/25 12:27 Depression Screening Interpretation: Negative Thrive Assessment: Date of Thrive Assessment Date Thrive assessed 09/06/25 09/06/25 11:48 Currently or been in a relationship where the following occur: No concerns reported Const General: no acute distress HENMT Head: Yes normal to inspection Ears: TM's normal bilaterally Face and sinus: Yes normal facial exam Throat: Yes posterior oropharynx normal Eyes General: appearance normal, both eyes and all related structures Resp Effort & Inspection: normal respiratory effort Auscultation: wheezes and diminished lung sounds Cardio Rhythm: regular rhythm Heart sounds: S1 normal heart sound present and S2 normal heart sound present Coding Level of Care Code Est Pt Level 4 (32460) Diagnoses Hypertension I10 Hyperlipidemia E78.5 Acute bronchitis J20.9 Additional Codes FUAD-7 Assessment Billing - FUAD-7 Assessment Tool: FUAD-7 Assessment 51021 ([id number]) PHQ-9 - 39084 - PHQ-9 Billing: Yes ([id number]) Assessment & Plan Assessment & Plan (1) Hypertension: Code(s): I10 - Essential (primary) hypertension Category: Medical Plan: Continue current medications (2) Hyperlipidemia: Code(s): E78.5 - Hyperlipidemia, unspecified Category: Medical Plan: Continue statin (3) Acute bronchitis: Code(s): J20.9 - Acute bronchitis, unspecified Category: Medical Plan: [place] and albuterol inhaler prescribed and supportive care discussed with the patient Orders: Orders Complete Blood Count Auto Diff 1 Month E55.9 - Vitamin D deficiency, unspecified, E78.5 - Hyperlipidemia, unspecified, I10 - Essential (primary) hypertension Vitamin D 25-OH Total 1 Month E55.9 - Vitamin D deficiency, unspecified, E78.5 - Hyperlipidemia, unspecified, I10 - Essential (primary) hypertension Comprehensive [place]. Panel Fast 1 Month E55.9 - Vitamin D deficiency, unspecified, E78.5 - Hyperlipidemia, unspecified, I10 - Essential (primary) hypertension Lipid Panel 1 Month E55.9 - Vitamin D deficiency, unspecified, E78.5 - Hyperlipidemia, unspecified, I10 - Essential (primary) hypertension TSH reflex Free T4 1 Month E55.9 - Vitamin D deficiency, unspecified, E78.5 - Hyperlipidemia, unspecified, I10 - Essential (primary) hypertension Medications: New azithromycin For 250 mg dose pack: take 500 mg today (day 1), then 250 mg for 4 days (days 2-5) PO 6 tabs 0RF albuterol sulfate 90 mcg/actuation (Ventolin HFA) 2 puffs inhalation Q6H PRN 6.7 grams 0RF shortness of breath or wheezing
--- OUTSIDE RECORDS SUMMARY | 2025-09-06 13:59 | XMS_ITS | Patient Health Record ---
Author Organization [facility] Address [address] [place] [address] Care Team Providers Care Mail Censor Name Role Phone Dameon Simon [phone] Allergies Allergen (clinical drug ingredient) Drug/Non Drug Allergy documented on EMR Reaction Allergy Type Onset Date Status rabeprazole Aciphex Unknown Drug Allergy Activ e Reason For Referral No Information Medications Medication SIG (Take, Route, Fr equency, Duration) Notes Start Date End Date Status MoviPrep 100 GM as directed Orally 08/28/20110 11/2024 Active hydroCHLOROthiazide Active Atenolol Active Problems Problem Type SNOMED Code ICD Code Onset Dates Problem Status W/U Status Risk Notes Problem Esophageal reflux (998819011) Esophageal reflux (530.81) Active confirmed Problem History of polyp of colon (situation) (553976199) Personal history of colonic polyps (V12.72) Active confirmed Problem Screening for malignant neoplasm of colon (958666752) Special screening for malignant neoplasms, colon (V76.51) Active confirmed Plan Of Treatment Future Test Test Name Order Date COLONOSCOPY 08/28/2011 Insurance Providers Payer Name Payer Address Payer Phone Subscriber Number Group Number Insured Name Patient Relationship to Insured Coverage Start Date Coverage End Date [place]ARE OF [place] [address] [place] [address] [id number] JOHANN GOLDSMITH Self - patient is the insured PGBA DO NOT USE DO NOT USE [facility] CLAIMS USE [facility] [address] [place] [address] [id number] JOHANN GOLDSMITH Self - patient is the insured Medical (General) History Medical History History ICD Code hypertension Denies MA,DM,CVA,Lung disease,renal dise ase Surgical History Surgery Date(Month/Year) benign breast biopsies
== END 2025-09-06 15:47 | disposition home or self-care (01) ==
LOC: HO.HMCC 11:09
PROVIDERS: PCP Internal Medicine; Visit Provider Internal Medicine
DX: I10 Essential (primary) hypertension (principal); E78.5 Hyperlipidemia, unspecified; J20.9 Acute bronchitis, unspecified

== ENCOUNTER → 2025-09-06 11:09 | Outpatient (BNVA) | payer MEDICARE, OTHER, SELFPAY | PROVIDERS: PCP Internal Medicine; Visit Provider Internal Medicine | DX: I10 Essential (primary) hypertension (principal); E78.5 Hyperlipidemia, unspecified; J20.9 Acute bronchitis, unspecified; Z13.31 Encounter for screening for depression; Z13.39 Encounter for screening examination for other mental health and behavioral disorders; E55.9 Vitamin D deficiency, unspecified | CPT/HCPCS: 96127; 99212 ==

== ENCOUNTER 2025-10-15 10:04 | Outpatient (REF) | payer MEDICARE, OTHER, SELFPAY ==
[2025-10-15 13:34] LABS: MANUAL DIFF FLAG NO
[2025-10-15 14:05] LABS: Hematocrit 38.1 % (37.0-47.0); Hemoglobin 13.0 g/dl (12.0-16.0); Imm Gran Abs Auto 0.01 X10*3/uL (0.00-0.03); Imm Gran Pct Auto 0.2 % (0.0-0.4); Lymphocytes Absolute Auto 2.4 X10*3/uL (1.2-4.9); Mean Corpuscular HGB Conc 34.1 g/dl (31.0-35.0); Mean Corpuscular Hemoglobin 31.4 pg (27.0-33.0); Mean Corpuscular Volume 92.0 fL (80.0-98.0); NRBC Abs Auto 0.030 X10*3/uL (0.0-0.012); NRBC Pct Auto 0.6 /100WBC (0.0-0.2); Platelet Count 269 X10*3/uL (160-400); Red Blood Count 4.14 X10*6/uL (4.20-5.50); White Blood Count 5.3 X10*3/uL (4.8-10.8)
[2025-10-15 14:32] LABS: Alanine Aminotransferase 20 U/L (0-31); Albumin Level 4.5 g/dL (3.5-5.0); Alkaline Phosphatase 46 U/L (39-117); Anion Gap 9 (12-20); Aspartate Amino Transferase 27 U/L (5-31); Blood Urea Nitrogen 17 mg/dL (9-16); Calcium 9.4 mg/dL (8.4-10.2); Carbon Dioxide 26 mmol/L (22-29); Chloride 111 mmol/L (96-108); Cholesterol 160 mg/dL (<200); Estimated Glomerular Filt Rate > 60; HDL Cholesterol 58 mg/dL (>40); Potassium 5.0 mmol/L (3.3-5.1); Sodium 141 mmol/L (135-145); Total Protein 7.1 g/dL (6.5-8.0); Triglycerides 46 mg/dL (<150)
== END 2025-10-15 10:05 | disposition home or self-care (01) ==
LOC: HO.HMGCLDS 10:04
PROVIDERS: PCP Internal Medicine; Visit Provider Internal Medicine
DX: I10 Essential (primary) hypertension (principal); E78.5 Hyperlipidemia, unspecified; E55.9 Vitamin D deficiency, unspecified; N64.4 Mastodynia; R01.1 Cardiac murmur, unspecified
CPT/HCPCS: 36415; 80053; 80061; 82306; 84443; 85025; 99397

== ENCOUNTER 2025-10-15 10:23 | Outpatient (AMB) | payer MEDICARE, OTHER, SELFPAY ==
--- NOTE | 2025-10-15 10:25 | A.OFFPC_ITS ---
Vital Signs 10/15/25 10:30 Height 5 ft Weight 126 lb BMI 24.6 BP 136/80 Blood Pressure Location Lt brachial Position Sitting Respiration 16 Pulse 63 Pulse Source Pulse Oximeter Temp 98.0 F Temp Source Oral Pulse Oximetry (%) 95 Oxygen Delivery Method Room Air Intake Visit Reasons: annual PE Intake Note: Pt is here today for PE. Allergies Aciphex Allergy (Intermediate, Uncoded 10/15/25 10:34) Swelling Tobacco use date assessed: 10/15/25 Fall risk assessment: No Falls in past year Last assessed Fall Risk: 10/15/25 Dental Screening Dental Screen Date: 09/06/25 HPI annual PE HPI Details Pt presents for PE. She reports intermittent left breast burning sensation and feeling of warmth on and off for last few months. Patient has not detected any breast lumps. Patient is going to [place] in 1 week to spend [place] with her daughter. [facility] Medical History Heart murmur Vitamin D deficiency Hyperlipidemia Hypertension Surgical History H/O breast surgery H/O: knee surgery H/O colonoscopy Family History Father Liver disease Mother No problems noted. Brother Brain cancer Social History Household Members Other:: lives alone, , [place], 1 daughter in [place], 1 granddaughter 16 yo Housing: House Alcohol intake: never Patient Tobacco Use Status: Never used Tobacco e-Cigarette/Vaping Use: Never Used service: No Current occupational status: retired Cognitive needs: No Hearing needs: No Vision needs: Yes Questionnaire Thrive Questionnaire Date Thrive assessed: 09/06/25 FUAD-7 AMB Questionnaire FUAD-7 Date FUAD - 7 assessed: 09/06/25 Source: Developed by Drs. Dameon Schmidt, Mikayla Conde, Danilo Alex and colleagues, with an educational leslee from [employer] Review of Systems Const All systems reviewed & are unremarkable except as noted in HPI and below Eyes Reports no additional complaints ENT Reports no additional complaints Card Reports no additional complaints Resp Reports no additional complaints GI Reports no additional complaints Reports no additional complaints Physical exam (Primary Care) Vital Signs: Last Vital Signs Temp 98.0 F 10/15/25 10:30 Pulse 63 10/15/25 10:30 Resp 16 10/15/25 10:30 BP 136/80 10/15/25 10:30 Pulse Ox 95 10/15/25 10:30 Oxygen Delivery Method Room Air 10/15/25 10:30 BMI result Body Mass Index 24.6 Tobacco/Smoking Status: Tobacco use Status Tobacco use date assessed 10/15/25 10/15/25 10:30 Patient Tobacco Use Status Never used Tobacco 10/15/25 10:30 e-Cigarette/Vaping Use Never Used 10/15/25 10:25 Thrive Assessment: Date of Thrive Assessment Date Thrive assessed 09/06/25 10/15/25 10:25 Const General: no acute distress HENMT Head: Yes normal to inspection Ears: hearing grossly normal bilaterally Face and sinus: Yes normal facial exam Throat: Yes posterior oropharynx normal Eyes General: appearance normal, both eyes and all related structures Neck Neck: Yes supple Chest Breast/axilla inspection: normal inspection of the breasts Breast/axilla palpation: normal palpation of the breasts and no axillary lymphadenopathy Resp Effort & Inspection: normal respiratory effort Auscultation: clear to auscultation bilaterally Cardio Rhythm: regular rhythm Heart sounds: S1 normal heart sound present and S2 normal heart sound present GI Inspection: Yes normal to inspection Palpation (GI): Soft to palpation Percussion: Yes normal to percussion Auscultation: normal bowel sounds Extrem General: Yes no clubbing, cyanosis or edema Coding Level of Care Code Est Pt Prev Care >65y(03752) Diagnoses Hypertension I10 Hyperlipidemia E78.5 Vitamin D deficiency E55.9 Breast pain, left N64.4 Heart murmur R01.1 Assessment & Plan Assessment & Plan (1) Hypertension: Code(s): I10 - Essential (primary) hypertension Category: Medical Plan: Increase lisinopril to 40 mg continue atenolol. Check comprehensive panel in 1 month (2) Hyperlipidemia: Code(s): E78.5 - Hyperlipidemia, unspecified Category: Medical Plan: cont low cholesterol diet (3) Vitamin D deficiency: Code(s): E55.9 - Vitamin D deficiency, unspecified Category: Medical Plan: cont vit D (4) Breast pain, left: Code(s): N64.4 - Mastodynia Category: Medical Plan: Obtain diagnostic mammogram and ultrasound of left breast patient requested [place] (5) Heart murmur: Comment: mild - mod TR, EF 60%, Echo 08/2023 Code(s): R01.1 - Cardiac murmur, unspecified Category: Medical Plan: Repeat echocardiogram Orders: Orders MM diagnostic mammo unilat LT Today N64.4 - Mastodynia US breast LT limited Today N64.4 - Mastodynia MM screening mammo unilat RT Today N64.4 - Mastodynia, Z12.31 - Encounter for screening mammogram for malignant neoplasm of breast Comprehensive [place]. Panel Fast 1 Month I10 - Essential (primary) hypertension [place] Echo Limited Today R01.1 - Cardiac murmur, unspecified Medications: New lisinopril 40 mg PO DAILY 90 tabs 3RF Discontinued lisinopril Discontinued Reason: Doctor's Order 30 mg PO DAILY 90 tabs 3RF
[2025-10-15 10:30] VITALS: BP 136/80; PULSE 63; RESP 16; TEMP 36.7; O2SAT 95; BMI 24.6
== END 2025-10-15 12:00 | disposition home or self-care (01) ==
LOC: HO.HMCC 10:24
PROVIDERS: PCP Internal Medicine; Visit Provider Internal Medicine
DX: Z00.00 Encounter for general adult medical examination without abnormal findings (principal); I10 Essential (primary) hypertension; E78.5 Hyperlipidemia, unspecified; E55.9 Vitamin D deficiency, unspecified; N64.4 Mastodynia; R01.1 Cardiac murmur, unspecified